=== PATIENT | female | born 2000 | race Hispanic/Latino ===

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

== ENCOUNTER → 2022-03-09 | Outpatient (CLI) | payer MEDICAID | END | disposition home or self-care (01) | LOC: RAH 07:34 | PROVIDERS: ATTEND Student in an Organized Health Care Education/Training Program | DX: N60.22 Fibroadenosis of left breast (principal); N60.21 Fibroadenosis of right breast | CPT/HCPCS: 76641 ==